=== PATIENT | male | born 1945 | race Caucasian/White ===

== ENCOUNTER 2020-11-26 08:25 | Emergency (ER) | payer OTHER ==
[2020-11-26 10:06] LABS: Mean Corpuscular HGB CONC 33.4 g/dL (32.0-36.0); Mean Corpuscular Hemoglobin 31.7 pg (27.0-31.0); Mean Corpuscular Volume 94.9 fL (78.0-98.0); Mean Platelet Volume 5.7 fL (7.4-10.4); Platelet Count 164 thou/uL (130-400); RBC Distribution Width 12.1 % (11.5-14.5); Red Blood Cell (RBC) Count 5.04 mill/uL (4.70-6.10); White Blood Cell (WBC) Count 4.7 thou/uL (4.8-10.8)
[2020-11-26 10:18] LABS: ALT (SGPT) 11 U/L (8-55); AST (SGOT) 21 U/L (5-34); Albumin 3.8 g/dL (3.4-4.8); Alkaline Phosphatase 57 U/L (40-110); Anion Gap 18 mmol/L (10-20); BUN (Urea Nitrogen) 21 mg/dL (8.4-25.7); Bilirubin, Total 0.5 mg/dL (0.2-1.2); Calc. Creatinine Clearance 0 mL/min (70-130); Calcium 9.5 mg/dL (7.8-10.44); Carbon Dioxide 26 mmol/L (23-31); Chloride 98 mmol/L (98-107); Globulin 3.4 g/dL (2.4-3.5); Glucose 100 mg/dL (83-110); Potassium 3.9 mmol/L (3.5-5.1); Protein, Total 7.2 g/dL (5.8-8.1); Sodium 138 mmol/L (136-145)
[2020-11-26 10:43] LABS: Bilirubin Small (Negative); Blood, Urine Moderate (Negative); Clarity Clear (Clear); Glucose, Urine (Dipstick) Negative (Negative); Ketone, Urine Negative (Negative); Leukocyte Negative (Negative); Nitrite Negative (Negative); Protein, Urine (Dipstick) 30 mg/dL (Neg-Trace); Urobilinogen 0.2 mg/dL (Less than 2)
[2020-11-26 10:46] LABS: Specific Gravity, Urine 1.025 (1.002-1.036)
[2020-11-26] MEDS ORDERED: Albuterol 200 PUFF (6.7GM INHALER) ONE (10:55)
[2020-11-26 11:01] LABS: Band 9 % (5-11); Lymphocytes 22 % (21-51); MDiff Complete? YES; Monocytes 15 % (0-10); Neutrophil 53 % (42-75)
[2020-11-26 11:09] LABS: Bacteria/HPF Rare-Few HPF (None Seen); Mucous/LPF Rare LPF (<2+); Squamous Epithelial 0-3 HPF (0-3); WBC/HPF 0-3 HPF (0-3)
[2020-11-26 12:10] LABS: SARS-CoV-2 NAA Rapid Test DETECTED (NotDetected)
== END 2020-11-26 17:15 | disposition home or self-care (01) ==
LOC: BURERS 08:25
DX: U07.1 COVID-19 (principal); R26.2 Difficulty in walking, not elsewhere classified; I10 Essential (primary) hypertension; E78.5 Hyperlipidemia, unspecified; Z86.73 Personal history of transient ischemic attack (TIA), and cerebral infarction without residual deficits; F17.200 Nicotine dependence, unspecified, uncomplicated; Z79.899 Other long term (current) drug therapy
CPT/HCPCS: 36415; 71045; 80053; 81003; 81015; 82550; 83605; 84484; 85025; 93005; 94760; U0002

== ENCOUNTER 2021-10-30 19:49 | Emergency (ER) | payer OTHER ==
[2021-10-30 20:57] LABS: #Eosinphils 0.1 thou/uL (0.0-0.7); #Lymphocytes 1.2 thou/uL (1.20-3.40); #Monocytes 0.6 thou/uL (0.11-0.59); #Neutrophils 5.8 thou/uL (1.40-6.50); %Basophils 0.5 % (0.0-1.0); %Eosinophils 1.7 % (0.0-10.0); %Lymphocytes 15.6 % (21.0-51.0); %Monocytes 7.6 % (0.0-10.0); %Neutrophils 74.6 % (42.0-75.0); Hemoglobin 17.3 g/dL (14.0-18.0); Mean Corpuscular HGB CONC 34.3 g/dL (32.0-36.0); Mean Corpuscular Hemoglobin 32.2 pg (27.0-31.0); Mean Corpuscular Volume 93.8 fL (78.0-98.0); Mean Platelet Volume 6.3 fL (7.4-10.4); Platelet Count 176 thou/uL (130-400); RBC Distribution Width 12.2 % (11.5-14.5); Red Blood Cell (RBC) Count 5.39 mill/uL (4.70-6.10); White Blood Cell (WBC) Count 7.8 thou/uL (4.8-10.8)
[2021-10-30 21:15] LABS: ALT (SGPT) Less than 7 U/L (8-55); AST (SGOT) 21 U/L (5-34); Albumin 3.9 g/dL (3.4-4.8); Alcohol Less than 10 mg/dL (Less than 10); Alkaline Phosphatase 60 U/L (40-110); Anion Gap 13 mmol/L (10-20); BUN (Urea Nitrogen) 30 mg/dL (8.4-25.7); Bilirubin, Total 0.7 mg/dL (0.2-1.2); CK (CPK) 322 U/L (30-200); Calc. Creatinine Clearance 0 mL/min (70-130); Calcium 9.8 mg/dL (7.8-10.44); Carbon Dioxide 27 mmol/L (23-31); Chloride 106 mmol/L (98-107); Estimated GFR 63; Globulin 3.2 g/dL (2.4-3.5); Glucose 136 mg/dL (83-110); Magnesium 1.8 mg/dL (1.6-2.6); Potassium 4.1 mmol/L (3.5-5.1); Protein, Total 7.1 g/dL (5.8-8.1); Salicylate Less than 8.0 mg/dL (15.0-30.0); Sodium 142 mmol/L (136-145)
[2021-10-30 21:36] LABS: Acetaminophen Less than 10.0 mcg/mL (10.0-30.0)
[2021-10-30 22:24] LABS: Bilirubin Negative (Negative); Blood, Urine Negative (Negative); Clarity Clear (Clear); Glucose, Urine (Dipstick) Negative (Negative); Ketone, Urine Trace mg/dL (Negative); Leukocyte Negative (Negative); Nitrite Negative (Negative); Protein, Urine (Dipstick) Trace mg/dL (Neg-Trace); Specific Gravity, Urine 1.025 (1.005-1.030); Urobilinogen 0.2 mg/dL (Less than 2); pH, Urine 5.5 (5.0-9.0)
[2021-10-30 22:43] LABS: Benzodiazepine Screen Detected (NotDetected); Cocaine Metabolite Screen Not Detected (NotDetected); Methamphetamine Not Detected (NotDetected); Opiate Screen Not Detected (NotDetected); Phencyclidine (PCP) Not Detected (NotDetected); THC/Cannabinoid Screen Not Detected (NotDetected); Tricyclic Screen Detected (NotDetected)
[2021-10-30 22:44] LABS: Amphetamine Not Detected (NotDetected); Barbiturates Screen Not Detected (NotDetected); Medtox Control Line Valid? VALID (VALID); Methadone Not Detected (NotDetected); Oxycodone Screen Not Detected (NotDetected)
== END 2021-10-30 23:10 | disposition home or self-care (01) ==
LOC: BURERS 19:49
DX: S39.012A Strain of muscle, fascia and tendon of lower back, initial encounter (principal); R41.82 Altered mental status, unspecified; I73.9 Peripheral vascular disease, unspecified; E78.5 Hyperlipidemia, unspecified; I10 Essential (primary) hypertension; Z86.73 Personal history of transient ischemic attack (TIA), and cerebral infarction without residual deficits; Z79.82 Long term (current) use of aspirin; Z79.899 Other long term (current) drug therapy; W19.XXXA Unspecified fall, initial encounter
CPT/HCPCS: 70450; 71045; 72131; 80053; 80306; 80307; 81003; 82550; 83735; 84484; 85025; 93005; 94760; 96360

== ENCOUNTER 2021-11-02 07:09 | Emergency (ER) | payer OTHER | END 2021-11-02 09:42 | disposition home or self-care (01) | LOC: BURERS 07:09 | DX: S00.93XA Contusion of unspecified part of head, initial encounter (principal); I10 Essential (primary) hypertension; E78.5 Hyperlipidemia, unspecified; Z86.73 Personal history of transient ischemic attack (TIA), and cerebral infarction without residual deficits; G20 Parkinson's disease; F17.200 Nicotine dependence, unspecified, uncomplicated; W18.30XA Fall on same level, unspecified, initial encounter | CPT/HCPCS: 70450; 72125 ==

== ENCOUNTER 2021-11-02 20:44 | Emergency (ER) | payer MEDICARE ==
[2021-11-02 22:01] LABS: #Eosinphils 0.1 thou/uL (0.0-0.7); #Lymphocytes 0.9 thou/uL (1.20-3.40); #Monocytes 0.4 thou/uL (0.11-0.59); #Neutrophils 4.5 thou/uL (1.40-6.50); %Basophils 0.7 % (0.0-1.0); %Eosinophils 2.2 % (0.0-10.0); %Lymphocytes 14.9 % (21.0-51.0); %Monocytes 5.9 % (0.0-10.0); %Neutrophils 76.2 % (42.0-75.0); Hemoglobin 15.6 g/dL (14.0-18.0); Mean Corpuscular HGB CONC 34.6 g/dL (32.0-36.0); Mean Corpuscular Hemoglobin 32.3 pg (27.0-31.0); Mean Corpuscular Volume 93.5 fL (78.0-98.0); Mean Platelet Volume 5.5 fL (7.4-10.4); Platelet Count 157 thou/uL (130-400); Red Blood Cell (RBC) Count 4.84 mill/uL (4.70-6.10); White Blood Cell (WBC) Count 5.9 thou/uL (4.8-10.8)
[2021-11-02] MEDS ORDERED: Bacitracin 1 PK ONE (22:03)
[2021-11-02 22:09] LABS: Troponin I 0.029 ng/mL (< 0.028)
[2021-11-02 22:12] LABS: ALT (SGPT) Less than 7 U/L (8-55); AST (SGOT) 14 U/L (5-34); Albumin 3.5 g/dL (3.4-4.8); Alkaline Phosphatase 61 U/L (40-110); Anion Gap 11 mmol/L (10-20); BUN (Urea Nitrogen) 31 mg/dL (8.4-25.7); Bilirubin, Total 0.5 mg/dL (0.2-1.2); Calc. Creatinine Clearance 0 mL/min (70-130); Carbon Dioxide 27 mmol/L (23-31); Chloride 109 mmol/L (98-107); Estimated GFR 59; Globulin 2.7 g/dL (2.4-3.5); Glucose 153 mg/dL (83-110); Protein, Total 6.2 g/dL (5.8-8.1); Sodium 143 mmol/L (136-145)
[2021-11-03 00:41] LABS: Bilirubin Small (Negative); Blood, Urine Trace (Negative); Clarity Clear (Clear); Glucose, Urine (Dipstick) Negative (Negative); Ketone, Urine Trace mg/dL (Negative); Leukocyte Negative (Negative); Nitrite Negative (Negative); Protein, Urine (Dipstick) Negative (Neg-Trace); Specific Gravity, Urine 1.025 (1.005-1.030); Urobilinogen 0.2 mg/dL (Less than 2); pH, Urine 5.5 (5.0-9.0)
[2021-11-03 00:45] LABS: Bacteria/HPF Rare-Few HPF (None Seen); RBC/HPF 0-3 HPF (0-3); Squamous Epithelial None Seen HPF (0-3); WBC/HPF None Seen HPF (0-3)
== END 2021-11-03 13:41 | disposition short-term general hospital (02) ==
LOC: BURERS 20:44
DX: R26.9 Unspecified abnormalities of gait and mobility (principal); R77.8 Other specified abnormalities of plasma proteins; R29.6 Repeated falls; E78.5 Hyperlipidemia, unspecified; Z86.73 Personal history of transient ischemic attack (TIA), and cerebral infarction without residual deficits; G20 Parkinson's disease; F17.200 Nicotine dependence, unspecified, uncomplicated
CPT/HCPCS: 36415; 70450; 71045; 72125; 80053; 81003; 81015; 83880; 84484; 85025; 87086; 93005